=== PATIENT | male | born 1965 | race Caucasian/White ===

== ENCOUNTER 2017-05-01 14:19 | Emergency (ER) | payer BC, OTHER ==
[~2017-05-01] VITALS: Ht 188 cm; Wt 127.2 kg
[2017-05-01] MEDS ORDERED: methylPREDNISolone INJ 125 MG/2 ML VIAL (J2930) IV ONE (15:45)
[2017-05-01] MEDS ORDERED: ONDANSETRON 4MG/2ML VIAL (J2405) IV ONE (15:45)
[2017-05-01] MEDS ORDERED: MORPHINE 4 MG/ML 1ML SYRINGE IV ONE (15:45)
[2017-05-01] MEDS ORDERED: FAMOTIDINE IV BAG 20 MG in APPROPRIATE DILUENT 1 EA IV ONE (15:45)
[2017-05-01] MEDS ORDERED: NS 1,000 ML IV ONE (15:45)
[2017-05-01] MEDS ORDERED: diphenhydrAMINE INJ 50MG/ML VIAL (J1200) IV ONE (15:45)
[2017-05-01 15:56] LABS: BASO % 0.1 % (0.0-1.0); EOS # 0.1 K/mm3 (0.0-0.50); EOS % 0.8 % (0.0-3.0); LARGE UNSTAINED CELL # 0.1 K/mm3 (0.0-0.4); LYMPH # 1.1 K/mm3 (1.5-4.5); LYMPH % 10.4 % (24.0-44.0); MEAN CORPUSCULAR HEMOGLOBIN 28.7 pg (27.0-33.0); MEAN CORPUSCULAR HGB CONC 33.8 g/dl (32.0-36.5); MEAN CORPUSCULAR VOLUME 84.9 fl (80.0-96.0); MONO # 0.4 K/mm3 (0.0-0.8); MONO % 4.1 % (0.0-5.0); NEUTROPHILS % 83.6 % (36.0-66.0); PLATELET COUNT, AUTOMATED 215 k/mm3 (150-450); RED CELL DISTRIBUTION WIDTH 14.2 % (11.5-14.5); WHITE BLOOD COUNT 9.6 K/mm3 (4.0-10.0)
[2017-05-01 16:09] LABS: ALBUMIN 3.5 GM/DL (3.2-5.2); ALKALINE PHOSPHATASE 51 U/L (45-117); ALT/SGPT 31 U/L (12-78); ANION GAP 8 MEQ/L (8-16); AST/SGOT 16 U/L (15-37); BILIRUBIN,DIRECT 0.1 MG/DL (0.0-0.2); BILIRUBIN,TOTAL 0.5 MG/DL (0.2-1.0); BLOOD UREA NITROGEN 13 MG/DL (7-18); CALCIUM LEVEL 8.8 MG/DL (8.5-10.1); CARBON DIOXIDE LEVEL 25 MEQ/L (21-32); CHLORIDE LEVEL 106 MEQ/L (98-107); CREATININE FOR GFR 0.89 MG/DL (0.70-1.30); GLOMERULAR FILTRATION RATE > 60.0 (>56); GLUCOSE, FASTING 103 MG/DL (70-105); POTASSIUM SERUM 4.2 MEQ/L (3.5-5.1); SODIUM LEVEL 139 MEQ/L (136-145)
--- NOTE | 2017-05-01 16:32 | REP ---
CT Head without contrast HISTORY: Headache COMPARISON: None There is no intraparenchymal hemorrhage, acute infarct, mass or midline shift. The ventricular system is normal in appearance. There is no extra cerebral collection. There is no fracture. The visualized sinuses are clear. IMPRESSION: There is no intracranial lesion. Signed by Nino Odell MD 05/01/2017 04:23 P
--- NOTE | 2017-05-01 16:35 | REP ---
HISTORY: Dyspnea and cough. COMPARISON: None. The technique utilized in obtaining the radiograph has magnified the cardiac silhouette and accentuated the interstitial markings. The superior mediastinal structures are midline. The cardiac silhouette is unremarkable in size, shape, and position. The diaphragmatic surfaces of the lungs are regular, and the costophrenic angles are clear. The pulmonary peguero are clear. The imaged osseous structures are intact. Mild basilar fibrotic changes are suspected. IMPRESSION: There is no acute cardiopulmonary disease. Mild basilar fibrotic changes are suspected. Signed by Carlos Rolle DO 05/01/2017 04:44 P
[2017-05-01] MEDS ORDERED: PEPC1TAB4 PO (17:23)
[2017-05-01] MEDS ORDERED: PRED20TA PO (17:23)
[2017-05-01] MEDS ORDERED: BENA25TA10 PO (17:23)
[2017-05-01 17:43] VITALS: BP 136/90
--- NOTE | 2017-05-01 17:49 | REP ---
CT ABDOMEN AND PELVIS WITHOUT IV CONTRAST: CT abdomen and pelvis performed without oral or IV contrast. Sagittal and coronal reconstruction images are performed. There are no prior studies for comparison. In the visualized lung bases there appear to be mild chronic interstitial changes without a couple of tiny calcified granulomas in the left lower lobe. There is a small hiatal hernia. The liver, gallbladder, spleen, adrenals, pancreas and kidneys are grossly unremarkable. I see no renal or ureteral calculus and there is no evidence of hydroureteronephrosis. There is no abdominal aortic aneurysm. I do not see significant adenopathy. There is haziness diffusely in the central mesentery suggesting sclerosing mesenteritis. No bowel thickening is seen. No free air or free fluid is seen. Urinary bladder is not well distended and not well evaluated. There is a small right inguinal hernia containing fat. IMPRESSION: Central diffuse haziness in the mesenteric fat suggesting sclerosing mesenteritis. No free air or free fluid. No bowel wall thickening. No evidence of renal, ureteral or bladder calculus and no hydroureteronephrosis. There is a small hiatal hernia. There is a small right inguinal hernia containing fat. Signed by Booekr Small MD 05/04/2017 12:48 P
--- NOTE | 2017-05-05 08:48 | ED PDOC ---
Post-Departure Follow-Up certified letter sent to patient Felisha Ramesh MD May 05, 2017 08:48
== END 2017-05-01 17:50 | disposition home or self-care (01) ==
LOC: M ED 14:19
DX: K65.4 Sclerosing mesenteritis (principal); R51 Headache; K44.9 Diaphragmatic hernia without obstruction or gangrene; K40.90 Unilateral inguinal hernia, without obstruction or gangrene, not specified as recurrent; L50.0 Allergic urticaria; F17.200 Nicotine dependence, unspecified, uncomplicated; Z98.84 Bariatric surgery status; Z79.899 Other long term (current) drug therapy
CPT/HCPCS: 36415; 70450; 71010; 74176; 80048; 80076; 81001; 85025; 87086; 93041; 94760; 96365; 96375; 99284; J1200; J2405; J2930

== ENCOUNTER → 2018-07-06 | Outpatient (CLI) | payer BC, OTHER | LOC: M WUC 18:53 | DX: S83.412A Sprain of medial collateral ligament of left knee, initial encounter (principal); M17.12 Unilateral primary osteoarthritis, left knee; X58.XXXA Exposure to other specified factors, initial encounter; Y92.9 Unspecified place or not applicable | CPT/HCPCS: 73564 ==

== ENCOUNTER → 2018-08-09 | Outpatient (CLI) | payer BC, OTHER | LOC: M RAD 17:53 | DX: M17.12 Unilateral primary osteoarthritis, left knee (principal); S83.232A Complex tear of medial meniscus, current injury, left knee, initial encounter; X58.XXXA Exposure to other specified factors, initial encounter; Y92.9 Unspecified place or not applicable; M25.462 Effusion, left knee; M94.262 Chondromalacia, left knee | CPT/HCPCS: 73721 ==

== ENCOUNTER 2021-02-28 14:22 | Emergency (ER) | payer BC, OTHER ==
[~2021-02-28] VITALS: Ht 188 cm; Wt 138.7 kg
[~2021-02-28 14:22] MED LIST: BENA25TA10 PO; PEPC1TAB5 PO; PRED20TA PO
[2021-02-28] MEDS ORDERED: BACTDSTA (14:28)
[2021-02-28] MEDS ORDERED: NS 1,000 ML IV ONE (15:10)
[2021-02-28] MEDS ORDERED: ACETAMINOPHEN 325 MG TAB PO ONE (15:10)
--- NOTE | 2021-02-28 15:40 | REP ---
INDICATION: DYSPNEA/COUGH. COMPARISON: 05/01/2017. TECHNIQUE: Single portable AP view of the chest was performed. FINDINGS: There is mild left ventricular prominence. I see no evidence of acute infiltrate. The mediastinal silhouette is unremarkable and unchanged. Metallic plate and screws are seen in the cervical spine. IMPRESSION: Mild left ventricular prominence. No acute infiltrate. <Electronically signed by Booker Small > 02/28/21 [id number]
[2021-02-28 15:43] LABS: ABG BASE EXCESS -2.2 (-2.0-2.0); ABG HCO3 18.8 MEQ/L (22.0-26.0); ABG O2 SATURATION 97.8 % (95.0-99.0); ABG PARTIAL PRESSURE CO2 23.5 mmHg (35.0-45.0); ABG STANDARD HCO3 22.7 MEQ/L (22.0-26.0); ABG TOTAL CO2 19.5 MEQ/L (22.0-29.0)
[2021-02-28 15:44] LABS: BASO % 0.2 % (0.0-1.0); EOS # 0.3 10^3/uL (0.0-0.5); EOS % 6.2 % (0.0-3.0); HEMATOCRIT 41.4 % (42.0-52.0); HEMOGLOBIN 13.6 g/dl (13.5-17.5); LYMPH # 0.2 10^3/uL (1.5-5.0); LYMPH % 5.7 % (24.0-44.0); MEAN CORPUSCULAR HEMOGLOBIN 27.8 pg (27.0-33.0); MEAN CORPUSCULAR HGB CONC 32.9 g/dl (32.0-36.5); MEAN CORPUSCULAR VOLUME 84.5 fl (80.0-96.0); MONO # 0.3 10^3/uL (0.0-0.8); MONO % 7.4 % (2.0-8.0); NEUTROPHILS # 3.3 10^3/uL (1.5-8.5); PLATELET COUNT, AUTOMATED 145 10^3/uL (150-450); WHITE BLOOD COUNT 4.1 10^3/uL (4.0-10.0)
[2021-02-28 16:17] LABS: ALBUMIN 3.6 GM/DL (3.2-5.2); ALT/SGPT 32 U/L (12-78); BILIRUBIN,DIRECT 0.2 MG/DL (0.0-0.2); BILIRUBIN,TOTAL 0.6 MG/DL (0.2-1.0); BLOOD UREA NITROGEN 19 MG/DL (7-18); CALCIUM LEVEL 8.2 MG/DL (8.5-10.1); CARBON DIOXIDE LEVEL 20 MEQ/L (21-32); CHLORIDE LEVEL 101 MEQ/L (98-107); CK-MB VALUE MASS < 1.0 NG/ML (<3.6); CPK CREATINE PHOSPHOKINASE 353 U/L (39-308); GLOMERULAR FILTRATION RATE > 60.0 (>56); GLUCOSE, FASTING 103 MG/DL (70-100); MB/CK RELATIVE INDEX 0.28 (< OR =4); NT-PRO BNP 2012 PG/ML (<125); POTASSIUM SERUM 3.6 MEQ/L (3.5-5.1); SODIUM LEVEL 133 MEQ/L (136-145); TOTAL PROTEIN 6.4 GM/DL (6.4-8.2); TROPONIN I < 0.02 NG/ML (< 0.10)
[2021-02-28 18:29] VITALS: BP 108/60
--- NOTE | 2021-03-01 03:19 | ECGEPIP ---
[facility] - ED Test Date: 2021-02-28 Pat Name: HENRY BRANDT Department: Room: - Gender: Male [facility] [employer] M Supervisor: ZAY : [id number] Requested By: CHRISTINA HORTON Order Number: [id number] Reading MD: Nico Hebetr Measurements Intervals [place] Rate: 111 P: 23 CT: 190 QRS: -3 QRSD: 114 T: 2 QT: 334 QTc: 454 Interpretive Statements Sinus tachycardia with premature atrial complexes Minimal voltage criteria for LVH, may be normal variant ( [place] product ) RATE CHANGE COMPARED TO 09/22/18 Electronically Signed on 03-01-2021 3:18:55 EDT by Nico Hebert
--- NOTE | 2021-03-04 14:32 | ED PDOC ---
Post-Departure Follow-Up cxr-p faxed to [facility] fp for fu Mae Alex MD Mar 04, 2021 14:32
== END 2021-02-28 18:31 | disposition home or self-care (01) ==
LOC: M ED 14:22
DX: B34.9 Viral infection, unspecified (principal); R50.9 Fever, unspecified; R00.0 Tachycardia, unspecified; Z98.84 Bariatric surgery status